=== PATIENT | female | born 1985 | race Caucasian/White ===

== ENCOUNTER 2017-06-05 19:28 | Emergency (ER) | payer OTHER ==
[~2017-06-05 19:28] MED LIST: AMBIEN10 MG PO; AVELOX400 MG PO; BACTRIM,SEPT1 TABLET PO; DIAMOX250 MG PO; ESCITALOPRAM OX20 MG PO; FLEXERIL5 MG PO; GABAPENTIN600 MG PO; HYDROCODON-ACE1 EAC7 PO; KEFLEX500 MG PO; LEXAPRO20 MG PO; MERCAPTOPURINE50 MG PO; NAPROSYN500 MG PO; NASONEX17 GM BOTH NARES; NOHOMEMEDS; ONDANSETRON HCL8 MG PO; OXYCODONE HCL30 MG PO; OXYCONTIN20 MG PO; PRENATAL TABLE1 EACH PO; ROXICODONE15 MG PO; XANAX0.25 MG PO; ZOFRAN8 MG PO; ZYRTEC10 M3 PO
== END 2017-06-05 19:36 | disposition left against medical advice (07) ==
LOC: EME 19:28
DX: Z04.8 Encounter for examination and observation for other specified reasons (principal); Z53.21 Procedure and treatment not carried out due to patient leaving prior to being seen by health care provider

== ENCOUNTER 2017-06-06 09:09 | Emergency (ER) | payer OTHER ==
[~2017-06-06] VITALS: Ht 162.6 cm; Wt 107.2 kg
[2017-06-06 09:12] VITALS: BP 137/79
== END 2017-06-06 11:00 | disposition home or self-care (01) ==
LOC: EME 09:09
DX: M25.511 Pain in right shoulder (principal); X58.XXXA Exposure to other specified factors, initial encounter; Y93.67 Activity, basketball; Z88.8 Allergy status to other drugs, medicaments and biological substances
CPT/HCPCS: 99281; 99283

== ENCOUNTER 2018-04-17 10:19 | Emergency (ER) | payer OTHER ==
[~2018-04-17] VITALS: Ht 162.6 cm; Wt 103.4 kg
[2018-04-17 11:32] LABS: BASOPHIL (%) 0.6 % (0-1); EOSINOPHIL (%) 1.3 % (0-5); EOSINOPHIL COUNT 0.1 K/uL (0-0.3); HEMATOCRIT 37.7 % (36.0-46.0); HEMOGLOBIN 12.8 G/DL (11.9-15.5); IMMATURE GRANULOCYTE (%) 0.2 % (0.0-0.7); LYMPHOCYTE (%) 22.4 % (15-42); LYMPHOCYTE COUNT 1.1 K/uL (1.0-2.8); MCH 29.7 PG (29.0-34.0); MCV 87.5 FL (83-99); MONOCYTE COUNT 0.3 K/uL (0-0.8); NEUTROPHIL (%) 68.5 % (45-76); NEUTROPHIL COUNT 3.2 K/uL (1.8-6.4); PLATELET COUNT 165 K/uL (156-360); RBC DIS.WIDTH-SD 38.5 % (39-53); RED BLOOD COUNT 4.31 M/uL (3.80-5.20); WHITE BLOOD COUNT 4.7 K/uL (4.1-10.2)
[2018-04-17 11:43] LABS: CHLORIDE 106 mEq/L (99-109); POTASSIUM 3.3 mEq/L (3.7-5.4); SODIUM 139 mEq/L (136-147)
[2018-04-17 11:45] LABS: GLUCOSE 102 mg/dL (70-99)
[2018-04-17 11:49] LABS: CREATININE 0.7 mg/dL (0.6-1.3); GFR ESTIMATE (CALCULATED) > 59 mL/min/
[2018-04-17 11:50] LABS: UREA NITROGEN (BUN) 9 mg/dL (9-23)
[2018-04-17] MEDS ORDERED: FIORICET 50-301 EAC1 PO (13:36)
[2018-04-17 14:00] VITALS: BP 106/67
== END 2018-04-17 14:00 | disposition home or self-care (01) ==
LOC: EME 10:19
PROVIDERS: Emergency Medicine
DX: G43.909 Migraine, unspecified, not intractable, without status migrainosus (principal); R22.0 Localized swelling, mass and lump, head; Z85.41 Personal history of malignant neoplasm of cervix uteri
CPT/HCPCS: 70450; 80048; 85025; 99281; 99284; J2765; J3010; J7030